=== PATIENT | male | born 1965 | race Caucasian/White ===

== ENCOUNTER 2018-11-10 04:20 | Emergency (ER) | payer BC ==
[2018-11-10 04:27] VITALS: TEMP 98.1
--- NOTE | 2018-11-10 04:38 | ED ---
General Adult HPI - General Chief complaint: Shortness of Breath Stated complaint: Difficulty Swallowing/Breathing Time Seen by Provider: 11/10/18 04:32 Source: patient Mode of arrival: ambulatory Limitations: no limitations - History of Present Illness Initial comments: This patient is a 53-year-old man who presents with complaint that he feels like his throat has some swelling. He states that this came on approximately an hour ago and he noted that when he woke up from sleep. Patient states that he had felt pre-much normal when he had gone to bed. Patient denies dyspnea area no fever or chills. Patient states that his symptoms feel a little bit better if he swallows cold water. He has not noted any worsening factors. -: hour(s) Radiation: non-radiation Quality: other (Tight) Consistency: constant Improves with: other (Cold water) Worsens with: none Associated Symptoms: denies other symptoms - Related Data Allergies Allergy/AdvReac Type Severity Reaction Status Date / Time No Known Allergies Allergy Verified 11/10/18 04:27 Review of Systems ROS Statement: Those systems with pertinent positive or pertinent negative responses have been documented in the HPI. ROS Other: All systems not noted in ROS Statement are negative. Constitutional: Denies: fever, chills ENT: Reports: as per HPI, throat pain. Denies: ear pain, dental pain, congestion Respiratory: Denies: cough, dyspnea, wheezes Cardiovascular: Denies: chest pain Gastrointestinal: Denies: abdominal pain, nausea, vomiting Skin: Denies: rash Neurological: Denies: headache Past Medical History Past Medical History: No Reported History History of Any Multi-Drug Resistant Organisms: None Reported Past Surgical History: Appendectomy, Cholecystectomy Past Psychological History: No Psychological Hx Reported Smoking Status: Never smoker Past Alcohol Use History: None Reported Past Drug Use History: None Reported General Exam Limitations: no limitations General appearance: alert, in no apparent distress Eye exam: Present: normal appearance. Absent: scleral icterus, conjunctival injection ENT exam: Present: mucous membranes moist, other (There is a trace of edema to the uvula, which is symmetric. No peritonsillar abscess.) Neck exam: Present: normal inspection, full ROM. Absent: tenderness, lymphadenopathy Respiratory exam: Present: normal lung sounds bilaterally. Absent: respiratory distress, wheezes, rales, rhonchi, stridor Cardiovascular Exam: Present: regular rate, normal rhythm, normal heart sounds. Absent: systolic murmur, diastolic murmur, rubs, gallop GI/Abdominal exam: Present: soft. Absent: distended, tenderness, guarding, rebound Course Vital Signs 11/10/18 11/10/18 04:23 06:11 Temperature 98.1 F Pulse Rate 79 72 Respiratory 18 20 Rate Blood Pressure 144/81 115/79 O2 Sat by Pulse 99 95 Oximetry EKG Findings - EKG Results: EKG: interpreted by ERMD, sinus rhythm (Rate 75 bpm), normal QRS, normal ST/T - Blocks, [place], Hypertrophy, ST Abn: QRS axis and voltage: left axis deviation (-30 to -90) Medical Decision Making - Medical Decision Making Patient's 53-year-old man with feeling of swelling in the pharynx that developed WAS sleeping. The patient on the exam does have mild edema of the uvula. His workup here is unremarkable, strep test negative, soft tissue neck interpreted by myself as negative. Radiologist raises question of possible sialoadenitis, but this does not appear to be the case clinically. Patient has had improvement through his course in the department, and states that he is feeling well and would like to go. Did discuss with him follow-up with your nose and throat doctor, as well as the return parameters. All questions answered. - Lab Data Result diagrams: 11/10/18 04:35 11/10/18 04:35 Lab Results 11/10/18 11/10/18 11/10/18 Range/Units 04:35 04:35 04:35 WBC 8.0 (3.8-10.6) k/uL RBC 4.91 (4.30-5.90) m/uL Hgb 15.8 (13.0-17.5) gm/dL Hct 47.9 (39.0-53.0) % MCV 97.5 (80.0-100.0) fL MCH 32.2 (25.0-35.0) pg MCHC 33.0 (31.0-37.0) g/dL RDW 13.3 (11.5-15.5) % Plt Count 287 (150-450) k/uL Neutrophils % 58 % Lymphocytes % 25 % Monocytes % 10 % Eosinophils % 4 % Basophils % 1 % Neutrophils # 4.6 (1.3-7.7) k/uL Lymphocytes # 2.0 (1.0-4.8) k/uL Monocytes # 0.8 (0-1.0) k/uL Eosinophils # 0.3 (0-0.7) k/uL Basophils # 0.1 (0-0.2) k/uL Sodium 141 (137-145) mmol/L Potassium 4.2 (3.5-5.1) mmol/L Chloride 108 H (98-107) mmol/L Carbon Dioxide 24 (22-30) mmol/L Anion Gap 9 mmol/L BUN 18 (9-20) mg/dL Creatinine 0.95 (0.66-1.25) mg/dL Est GFR (CKD-EPI)AfAm >90 (>60 ml/min/1.73 sqM) Est GFR (CKD-EPI)NonAf >90 (>60 ml/min/1.73 sqM) Glucose 150 H (74-99) mg/dL Calcium 9.6 (8.4-10.2) mg/dL Group A Strep Rapid Negative (Negative) Disposition Clinical Impression: Uvular edema Disposition: HOME SELF-CARE Condition: Good Instructions (If sedation given, give patient instructions): Uvulitis (ED) Is patient prescribed a controlled substance at d/c from ED?: No Referrals: Jude Perez Jr, DO [Primary Care Provider] - 1-2 days Darius Fowler MD [STAFF PHYSICIAN] - 1-2 days
[2018-11-10] MEDS ORDERED: predniSONE 20 MG TAB PO STA (04:48)
[2018-11-10] MEDS ORDERED: LIDOCAINE VISCOUS 2% 15 ML CUP MUCOUS MEM ONE (04:49)
[2018-11-10 04:58] LABS: Basophils # (A) 0.1 k/uL (0-0.2); Basophils % (A) 1 %; Eosinophils # (A) 0.3 k/uL (0-0.7); Eosinophils % (A) 4 %; HCT 47.9 % (39.0-53.0); HGB 15.8 gm/dL (13.0-17.5); Lymphocytes % (A) 25 %; MCH 32.2 pg (25.0-35.0); MCV 97.5 fL (80.0-100.0); Mean Platelet Volume 6.3; Monocytes # (A) 0.8 k/uL (0-1.0); Monocytes % (A) 10 %; Neutrophils # (A) 4.6 k/uL (1.3-7.7); Neutrophils % (A) 58 %; Platelet Count 287 k/uL (150-450); RBC 4.91 m/uL (4.30-5.90); RDW 13.3 % (11.5-15.5)
[2018-11-10 05:11] LABS: Anion Gap 9 mmol/L; Blood Urea Nitrogen 18 mg/dL (9-20); Calcium 9.6 mg/dL (8.4-10.2); Carbon Dioxide 24 mmol/L (22-30); Chloride 108 mmol/L (98-107); Glucose 150 mg/dL (74-99); Potassium 4.2 mmol/L (3.5-5.1); Sodium 141 mmol/L (137-145)
--- NOTE | 2018-11-10 05:34 | XR ---
EXAM: XR Soft Tissue Neck CLINICAL HISTORY: Pain TECHNIQUE: Frontal and lateral views of the soft tissues of the neck. COMPARISON: No relevant prior studies available. FINDINGS: Airway: Unremarkable. No abnormal narrowing. Bones/joints: Unremarkable. Soft tissues: Prominence of the submandibular soft tissues raises concern for submandibular sialadenitis. Normal epiglottis. IMPRESSION: Prominence of the submandibular soft tissues raises concern for submandibular sialadenitis. Correlate clinically.
[2018-11-10 06:13] VITALS: BP 115/79; PULSE 72; RESP 20
== END 2018-11-10 07:03 | disposition home or self-care (01) ==
LOC: EC 04:20
DX: R60.0 Localized edema (principal); J39.8 Other specified diseases of upper respiratory tract
CPT/HCPCS: 36415; 93005; 80048; 85025; 87081; 87430; 70360; 99285; J7512

== ENCOUNTER 2018-12-25 23:11 | Observation (INO) | payer BC ==
[2018-12-25] MEDS ORDERED: NITROGLYCERIN SL TABS 0.4 MG TAB SUBLINGUAL STA (23:26)
[2018-12-25] MEDS ORDERED: ASPIRIN 81 MG PO STA (23:26)
[2018-12-25 23:42] LABS: Basophils # (A) 0.1 k/uL (0-0.2); Basophils % (A) 1 %; Eosinophils # (A) 0.4 k/uL (0-0.7); Eosinophils % (A) 4 %; HCT 47.8 % (39.0-53.0); HGB 16.3 gm/dL (13.0-17.5); Lymphocytes % (A) 25 %; MCH 32.6 pg (25.0-35.0); MCHC 34.2 g/dL (31.0-37.0); MCV 95.4 fL (80.0-100.0); Mean Platelet Volume 6.7; Monocytes # (A) 0.8 k/uL (0-1.0); Monocytes % (A) 7 %; Neutrophils % (A) 61 %; Platelet Count 304 k/uL (150-450); RBC 5.01 m/uL (4.30-5.90); WBC 11.6 k/uL (3.8-10.6)
[2018-12-25] MEDS ORDERED: SODIUM CHLORIDE 0.9% 1,000 ML IV ONE (23:42)
[2018-12-25] MEDS ORDERED: ONDANSETRON 4 MG/2 ML VIAL IVP STA (23:45)
[2018-12-25 23:55] LABS: ALT 44 U/L (21-72); AST 28 U/L (17-59); Albumin 4.9 g/dL (3.5-5.0); Alkaline Phosphatase 95 U/L (38-126); Anion Gap 11 mmol/L; Blood Urea Nitrogen 19 mg/dL (9-20); Calcium 10.2 mg/dL (8.4-10.2); Carbon Dioxide 25 mmol/L (22-30); Chloride 106 mmol/L (98-107); Glucose 112 mg/dL (74-99); INR 0.9 (<1.2); Lipase 111 U/L (23-300); Partial Thromboplastin Time 23.9 sec (22.0-30.0); Potassium 4.5 mmol/L (3.5-5.1); Prothrombin Time 9.7 sec (9.0-12.0); Sodium 142 mmol/L (137-145); Total Bilirubin 0.5 mg/dL (0.2-1.3); Total Protein 8.4 g/dL (6.3-8.2)
--- NOTE | 2018-12-26 00:12 | XR ---
EXAM: XR Chest, 2 Views CLINICAL HISTORY: ITS.REASON XR Reason: Chest Pain TECHNIQUE: Frontal and lateral views of the chest. COMPARISON: No relevant prior studies available. FINDINGS: Lungs: No consolidation or mass. Pleural space: No effusion. Heart: No cardiomegaly. Mediastinum: Unremarkable. Bones/joints: No acute findings. IMPRESSION: No acute cardiopulmonary process.
--- NOTE | 2018-12-26 00:15 | ED ---
Chest Pain HPI - General Chief Complaint: Chest Pain Stated Complaint: Chest Pain Time Seen by Provider: 12/25/18 23:26 Source: patient Mode of arrival: wheelchair Limitations: no limitations - History of Present Illness Initial Comments: Leonard is an overweight if 53-year-old male who presents the emergency department today for valuation of sudden onset of sharp left-sided chest pain with associated dyspnea. Patient was in his usual state of health throughout the day today, he went to dinner with his family. He reports that approximately one hour prior to arrival he began having sharp pain in his left chest and feeling that he couldn't catch his breath. Patient's did give him 1 sublingual nitro any reports the pain decreased from a 10 out of 10 to a 2 out of 10 in severity prior to arrival in the emergency department. The patient has no history of hypertension, hyperlipidemia, or diabetes or known cardiovascular disease. He has been seen by cardiology in the past believes his last stress test was 3-4 years ago. - Related Data Home Medications Medication Instructions Recorded Confirmed No Known Home Medications 12/25/18 12/25/18 Allergies Allergy/AdvReac Type Severity Reaction Status Date / Time No Known Allergies Allergy Verified 11/10/18 04:27 Review of Systems ROS Statement: Those systems with pertinent positive or pertinent negative responses have been documented in the HPI. ROS Other: All systems not noted in ROS Statement are negative. EKG Findings - EKG Comments: EKG Findings:: Initial EKG was obtained at 2324, rate is 97 rhythm is sinus there is a normal axis there are normal intervals, MI 136, QRS 92, QTc 457 there is evidence of a left anterior fascicular block. There are no acute ST el evations or depressions there is no evidence of acute ischemia or infarction. After cyclical nitro patient was noted to become hypotensive and complaining of nausea and a repeat EKG was obtained at 2349, rate is 81 rhythm is sinus there is leftward axis deviation there are normal intervals, MI 134, QRS 90, QTc is 441 again there are no acute ST elevations or depressions there is no evidence of acute ischemia or infarction. Past Medical History Past Medical History: No Reported History History of Any Multi-Drug Resistant Organisms: None Reported Past Surgical History: Appendectomy, Cholecystectomy Past Psychological History: No Psychological Hx Reported Smoking Status: Never smoker Past Alcohol Use History: None Reported Past Drug Use History: None Reported General Exam - General Exam Comments Initial Comments: Physical Exam GENERAL: Patient is well-developed and well-nourished. Patient is nontoxic and well-hydrated and is in no distress. Appears mildly uncomfortable HENT: Normocephalic, Atraumatic. EYES: PERRL, EOMI PULMONARY: Unlabored respirations. No audible rales rhonchi or wheezing was noted. CARDIOVASCULAR: There is a regular rate and rhythm without any murmurs gallops or rubs. Radial pulses present and equal bilaterally ABDOMEN: Soft and nontender with normal bowel sounds. No pulsatile masses SKIN: Skin is clear with no lesions or rashes and otherwise unremarkable. : Deferred NEUROLOGIC: Patient is alert and oriented x3. Moving all extremities spontaneously MUSCULOSKELETAL: Normal extremities with adequate strength and full range of motion. No lower extremity swelling or edema. No calf tenderness. PSYCHIATRIC: Normal psychiatric evaluation. Limitations: no limitations Course Vital Signs 12/25/18 12/25/18 12/26/18 23:16 23:49 00:14 Temperature 98.0 F Pulse Rate 111 H 81 85 Respiratory 22 18 Rate Blood Pressure 141/88 117/76 126/85 O2 Sat by Pulse 95 93 L Oximetry 12/26/18 12/26/18 12/26/18 00:36 01:21 02:34 Temperature 98.5 F Pulse Rate 76 81 851 H Respiratory 16 16 18 Rate Blood Pressure 122/69 110/70 118/72 O2 Sat by Pulse 95 97 97 Oximetry Chest Pain MDM - MDM The patient was seen and evaluated immediately upon arrival to the emergency department is a 53-year-old overweight male with history of sleep apnea and poor outpatient follow-up who presents with left-sided stabbing chest pain with associated dyspnea Patient had a nitro prior to arrival with resolution of his pain he reports feeling much more comfortable now Cardiac workup was ordered as well as additional nitro. Second nitro was given the patient was noted to become hypotensive at which time a repeat EKG again confirms sinus rhythm with no acute ST elevations or depressions Labs resulted with no significant abnormalities however given the patient's age and risk factors I do feel he warrants admission to the hospital for further evaluation. Patient and family are comfortable with this plan. Patient was admitted to the hospital for cardiology workup. Disposition Clinical Impression: Chest pain Disposition: ADMITTED IP TO THIS HOSP Condition: Stable
[2018-12-26] MEDS ORDERED: NITROGLYCERIN SL TABS 0.4 MG TAB SUBLINGUAL PRN (00:21)
[2018-12-26 12:15] VITALS: BP 120/77; PULSE 70; RESP 18; TEMP 97.7
--- NOTE | 2018-12-26 12:41 | CONS ---
CONSULTATION CHIEF COMPLAINT: Chest pain. HISTORY OF PRESENT ILLNESS: Leonard is a 53-year-old gentleman with no significant past medical history who presented to hospital complaining of chest pain. He had an episode of chest discomfort. Took his 's sublingual nitroglycerin and the pain had subsided. There is no prior history of hypertension, diabetes, dyslipidemia. Apparently had a negative stress test 3-4 years ago. Since being admitted, he is doing well and is free of cardiac symptoms. His EKG does not reveal ischemic changes, shows sinus rhythm with left axis deviation. He had 2 sets of tropes that were both negative. Hemoglobin is normal at 16.3. PAST MEDICAL HISTORY: Negative for hypertension, diabetes, dyslipidemia. MEDICATIONS: None. ALLERGIES: Allergies none. FAMILY HISTORY: Negative for premature coronary artery disease. SOCIAL HISTORY: Negative for smoking, EtOH abuse or drug abuse. REVIEW OF SYSTEMS: HEENT is unremarkable. Cardiac as described above. Respiratory negative. GI negative. negative. ALLERGY/IMMUNOLOGY: Negative. Skin negative. Musculoskeletal significant for arthritis. Psychosocial negative. Endocrine: Negative. Derm negative. Constitutional negative. Oncological negative. Rest of the system review is not relevant. EXAM: The patient is comfortable at rest. Vital signs are stable. There is no jugular venous distention. Carotid upstroke is normal. There is no bruit. Chest exam reveals good air entry bilaterally. Heart exam reveals first and second heart sounds. No gallop. No murmur. Abdomen is soft. Exam of extremities did not reveal edema. Peripheral pulses are felt. ASSESSMENT: Precordial chest pain. PLAN: Patient's chest discomfort is sharp, atypical, nonpleuritic, and the patient has been doing well since admission. EKG does not reveal ischemic changes. Troponins are negative. I am going to obtain a stress test on him tomorrow. If this is negative, he can be discharged home and have outpatient follow up with me in 4 weeks time. If stress test is abnormal, I will consider further workup. Thank you for allowing me to participate in the care of this pleasant gentleman. MMODL / IJN: [id number] /
--- NOTE | 2018-12-26 12:46 | P.HPIM ---
History of Present Illness H&P Date: 12/26/18 Chief Complaint: Chest pain, shortness of breath Leonard is a 53-year-old male well-known to the practice who presented to the emergency room today complaining of sudden onset of left-sided chest pain associated with dyspnea. Patient was otherwise feeling well went to dinner with his family reported approximately one hour prior to arrival he began having sharp chest pain in the left and feeling like he couldn't catch his breath patient's gave him a sublingual nitro the pain diminished significantly from a 10 out of 10 due to out of 10. Prior to arrival in the emergency room. Patient had probable known history of obstructive sleep apnea and is primary care provider as we've been encouraging him to undergo ION testing, patient had stress thallium approximately 3 years ago that was completely normal. Father was in his 60s secondary to liver disease his paternal grandfather in his late 50s secondary to myocardial infarction. His mother is still alive no significant medical history. This patient's oldest daughter is a registered nurse who works in the emergency room at this facility. Review of Systems Constitutional: Reports as per HPI, Reports daytime sleepiness, Reports fatigue Ears, nose, mouth and throat: Reports as per HPI Cardiovascular: Reports chest pain, Reports high blood pressure, Reports shortness of breath Respiratory: Reports dyspnea (Snoring excessively, daughter describes hypopneac episodes when patient falls asleep on his favorite chair) Gastrointestinal: Reports dyspepsia Genitourinary: Reports as per HPI Musculoskeletal: Reports as per HPI Integumentary: Reports as per HPI Neurological: Reports as per HPI Psychiatric: Reports as per HPI Past Medical History Past Medical History: No Reported History Additional Past Medical History / Comment(s): Heavy snoring, daughter and have described hyper apnea Episodes when patient sleeps on his favorite chair, after dinner History of Any Multi-Drug Resistant Organisms: None Reported Past Surgical History: Appendectomy, Cholecystectomy Past Anesthesia/Blood Transfusion Reactions: No Reported Reaction Past Psychological History: No Psychological Hx Reported Smoking Status: Never smoker Past Alcohol Use History: None Reported Past Drug Use History: None Reported Medications and Allergies Home Medications Medication Instructions Recorded Confirmed Type No Known Home Medications 12/25/18 12/26/18 History Allergies Allergy/AdvReac Type Severity Reaction Status Date / Time No Known Allergies Allergy Verified 12/26/18 08:54 Physical Exam Osteopathic Statement: *. No significant issues noted on an osteopathic structural exam other than those noted in the History and Physical/Consult. Vitals: Vital Signs Temp Pulse Pulse Resp BP BP Pulse Ox 12/26/18 12:00 97.7 F 70 18 120/77 96 12/26/18 08:00 97.6 F 72 16 121/73 98 12/26/18 03:20 77 16 12/26/18 03:02 98.5 F 77 16 132/73 97 12/26/18 02:34 98.5 F 851 H 18 118/72 97 12/26/18 01:21 81 16 110/70 97 12/26/18 00:36 76 16 122/69 95 12/26/18 00:14 85 126/85 12/25/18 23:49 81 18 117/76 93 L 12/25/18 23:16 98.0 F 111 H 22 141/88 95 Intake and Output 12/25/18 12/26/18 12/26/18 22:59 06:59 14:59 Other: Voiding Method Toilet # Voids 1 Weight 108.862 kg General: [Patient awake, alert and oriented times 3. Patient in no acute distress.] HEENT: [PERRL. EOMI. No pharyngeal erythema or exudate.] Neck: [No adenopathy.] Cardiac: [Heart regular in rate and rhythm. No S3. No S4. No clicks, rubs. No murmur.] Lungs: [Clear to auscultation bilaterally.] Abdomen: [No mass. No organomegaly. Bowel sounds presnt and normoactive in all 4 quadrants.] Abdominal postop scarring from appendectomy and laparoscopic cholecystectomy Extremes: [No edema no cyanosis no claudication normal pulses] : [] Musculoskeletal: [No joint erythema, edema or tenderness.] Skin: [No rash.] Neurologic: [No lateralizing deficits. CN II - XII grossly intact.] Lymphatic: [No adenopathy.] Results CBC & Chem 7: 12/25/18 23:23 12/25/18 23:23 Labs: Abnormal Lab Results - Last 24 Hours (Table) 12/25/18 12/25/18 Range/Units 23:23 23:23 WBC 11.6 H (3.8-10.6) k/uL Glucose 112 H (74-99) mg/dL Total Protein 8.4 H (6.3-8.2) g/dL Thrombosis Risk Factor Assmnt - Choose All That Apply Any of the Below Risk Factors Present?: Yes Each Factor Represents 1 point: Age 41-60 years, Obesity (BMI >25) Other Risk Factors: No Other congenital or acquired thrombophilia - If yes, enter type in comment: No Thrombosis Risk Factor Assessment Total Risk Factor Score: 2 Thrombosis Risk Factor Assessment Level: Low Risk Assessment and Plan (1) Loud snoring Current Visit: Yes Status: Acute Code(s): R06.83 - SNORING SNOMED Code(s): 90126299 Plan: Chest pain with associated shortness of breath Diminished are resolved with sublingual nitro Heavy snoring per and daughter Normal troponins Patient had normal stress test approximately 3 years ago Basic metabolic panel as well as all other labs are basically normal Cardiac ALLERGY consult performed plan is to proceed with stress thallium Discharge home schedule stress thallium as an outpatient Time with Patient: Greater than 30
--- NOTE | 2018-12-26 12:55 | P.DS ---
Providers Date of admission: 12/26/18 00:21 Expected date of discharge: 12/26/18 Attending physician: Micha Pate Consults: 12/26/18 00:21 Consult Physician Urgent Consulting Provider: [facility] Consult Reason/Comments: chest pain Do you want consulting provider notified?: Yes, Notify in am Primary care physician: Micha Pate - Discharge Diagnosis(es) (1) Loud snoring Patient was admitted last evening as a cardiac observe secondary to chest pain shortness of breath, chest pain that was resolved with nitroglycerin Troponins were all negative at this time Patient walked this morning without chest pain or difficulty Case was discussed with Dr. Weir cardiology will discharge patient home schedule stress thallium as an outpatient and obstructive sleep apnea evaluation as an outpatient We'll plan on evaluating patient in the office Thursday or Thursday morning Current Visit: Yes Status: Acute Hospital Course: Evaluation in the emergency room and subsequent overnight admission and observation unit for cardiac enzymes Patient Condition at Discharge: Stable Plan - Discharge Summary New Discharge Prescriptions: No Action No Known Home Medications Discharge Medication List No Known Home Medications 12/25/18 [History] Follow up Appointment(s)/Referral(s): Jude Perez Jr, DO [Doctor of Osteopathic Medicine] - 1-2 days Discharge Disposition: HOME SELF-CARE
[2018-12-27] MEDS ORDERED: ASPIRIN 325 MG TAB PO SCH (09:00)
== END 2018-12-26 13:26 | disposition home or self-care (01) ==
LOC: EC 23:11 → 1SOBS 12-26 00:21
PROVIDERS: ADMIT Family Medicine; ATTEND Family Medicine
DX: R07.89 Other chest pain (principal); I44.4 Left anterior fascicular block; I95.9 Hypotension, unspecified; R11.0 Nausea; M19.90 Unspecified osteoarthritis, unspecified site; R53.83 Other fatigue; G47.30 Sleep apnea, unspecified; R06.83 Snoring; E66.9 Obesity, unspecified; Z68.32 Body mass index [BMI] 32.0-32.9, adult; Z90.49 Acquired absence of other specified parts of digestive tract; Z82.49 Family history of ischemic heart disease and other diseases of the circulatory system; Z83.79 Family history of other diseases of the digestive system
CPT/HCPCS: 96361 ×2; 96374; 99285; 36415; 93005; 83880; 80053; 83690; 83735; 84484 ×2; 85025; 85610; 85730; 71046; G0378; J2405

== ENCOUNTER → 2019-03-03 | Outpatient (CLI) | payer BC ==
--- NOTE | 2019-03-03 22:08 | CONS ---
CONSULTATION DATE OF SERVICE: 03/03/2019 53-year-old gentleman has been evaluated in the sleep center for possible obstructive sleep apnea-hypopnea syndrome. HISTORY OF PRESENT ILLNESS/SLEEP WAKE EVALUATION: SLEEP SCHEDULE: Patient usual sleep schedule from 10 p.m. to 5:30 a.m. on working days and from midnight until 7 or 8 a.m. on weekends. FALLING ASLEEP: Sometimes he has problem with falling asleep. Has TV set in bedroom. DURING SLEEP: Usually sleeps on the side position. According to his , he has extremely loud snoring and episodes of stopped breathing during the sleep. Patient wakes up from sleep with episodes of difficulties to breathe and closing of his throat and was evaluated at that time in the emergency room for those symptoms. He has episodes of dry mouth, heartburn. DURING THE DAY/SLEEP WAKE EVALUATION: In the morning he wakes up tired. Worries about his sleep, has episodes of irritability. [place] Sleepiness Scale is 5. Questionable positive history of hypnagogic hallucination. No episodes of sleep paralysis or cataplexy. MEDICATIONS: None. PAST MEDICAL HISTORY: Positive for episodes of chest pain. 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 PAST SURGICAL HISTORY: Appendectomy, cholecystectomy. SOCIAL HISTORY: Quit smoking about 40 years ago. Alcohol consumption occasional. FAMILY HISTORY: Hypertension, heart problems, arthritis, cancer, snoring, acid reflux, liver problems, diabetes, during the sleep. REVIEW OF SYSTEMS: Awakenings from sleep up to 3 times with 2 episodes of nocturia. PHYSICAL EXAM: gentleman without distress. BP 123/82, HR 84, RR 14, height 5 feet 10 inches, weight 236.2, body mass index 33.8. Temperature 99.0, oxygen saturation at room air 96%. Oropharynx: Extremely low position of soft palate. Mallampati 4. Wide neck 16-1/2 inches in circumference. Neck Supple, no JVD. Thyroid is not palpable. LUNGS Clear to percussion and to auscultation. Good air exchange. No wheezing or rhonchi. HEART S1, S2 regular. No murmurs, gallops, or rubs. ABDOMEN: Slightly obese. Soft and nontender. Bowel sounds are present. No organomegaly appreciated. EXTREMITIES No clubbing or cyanosis. TEMPLER HEAD Awake, alert, and oriented X3. Cranial nerves 2 to 7 intact. There is no fasciculation or atrophy. noted. No focal deficits observed. IMPRESSION: 1. Loud snoring, witnessed episodes of stopped breathing during the sleep, awakening from sleep with gasping and choking, extremely low position of soft palate, wide neck, obstructive sleep apnea-hypopnea syndrome. 2. Obesity, body mass index 33.8. 3. History of episodes of angina. Cardiac evaluation was negative. 4. Status post appendectomy. 5. Status post lap cholecystectomy. PLAN: 1. Home sleep apnea test for evaluation of patient breathing during the sleep. 2. CPAP/BiPAP titration if sleep study confirms obstructive sleep apnea-hypopnea syndrome. 3. Preferable position during sleep on the side. 4. No driving if patient feels any sleepiness. 5. I will see patient for follow up visit to explain results of testing and following plan. Thank you very much for referring this patient for consultation. Sincerely, Kel Granda MD, PhD, FAASM Diplomat of [place] [employer] [place] [employer] [facility] MMODL / REYNOLDN: [id number] /
== END ==
LOC: SLEEP 15:59
PROVIDERS: ATTEND Internal Medicine
DX: G47.33 Obstructive sleep apnea (adult) (pediatric) (principal); E66.9 Obesity, unspecified; Z90.49 Acquired absence of other specified parts of digestive tract; Z90.89 Acquired absence of other organs; Z68.33 Body mass index [BMI] 33.0-33.9, adult; Z99.89 Dependence on other enabling machines and devices; Z86.79 Personal history of other diseases of the circulatory system; Z87.891 Personal history of nicotine dependence
CPT/HCPCS: 99211

== ENCOUNTER → 2019-07-21 | Outpatient (CLI) | payer BC ==
--- NOTE | 2019-07-21 11:44 | SFUN ---
SLEEP CENTER FOLLOW UP NOTE DATE OF SERVICE: 07/21/2019 A 53-year-old gentleman who has been followed in the Sleep Center for treatment of obstructive sleep apnea-hypopnea syndrome. Recently, patient had home sleep apnea test which showed severe abnormalities of respiration with apnea-hypopnea index 68.9 with oxygen desaturation to 82%. Then patient had CPAP titration, his respiration normalized and subsequently he received his CPAP unit. Today is his first visit after he was started on treatment with CPAP. I discussed results of sleep studies with the patient. He is able to use CPAP equipment every night. Does not snore with the CPAP. Sleeps better. [place] Sleepiness Scale today is 5. I checked CPAP unit, range of the pressure 8-13, average pressure 10.4. Usage is 28/30 nights and 26/30 nights for more 4 hours. Average usage is 6.4 hours, leak only 4 L/minute which is great. Apnea-hypopnea index of only 0.7, which is perfect. MEDICATIONS: Ibuprofen for the pain if necessary. Sometimes patient feels dryness in the throat, humidifier is at level of 2. PHYSICAL EXAM: Patient in no distress BP 149/86, HR 90, RR 16, weight 243, temp 99.0, oxygen saturation at room air 97%. OROPHARYNX: Extremely low soft palate, Mallampati 4. ABDOMEN: Slightly obese. NECK: Supple, no JVD. Thyroid is not palpable. LUNGS: Clear to percussion and to auscultation. Good air exchange. No wheezing or rhonchi. HEART: S1, S2 regular. No murmurs, gallops, or rubs. EXTREMITIES: No clubbing or cyanosis. [employer]: Awake, alert, and oriented X3. Cranial nerves 2 to 7 intact. There is no fasciculation or atrophy. noted. No focal deficits observed. IMPRESSION: 1. Severe obstructive sleep, apnea-hypopnea syndrome, apnea-hypopnea index 68.9 and oxygen desaturation to 82% on full control with CPAP. Patient demonstrated great compliance with treatment benefitting from treatment into slight dryness in the throat while using CPAP, humidifier level at 2. 2. Obesity. 3. Some periodic limb movements during titration. No clinical symptoms of limb movements at night. 4. History of migraine, related to the present wound. 5. Status post appendectomy. 6. Status post cholecystectomy. 7. History of episodes of angina with negative cardiac evaluation. Not any recent episodes of angina. PLAN: 1. Patient will continue to use CPAP equipment every night. 2. I will adjust humidity to 4 and I will teach him how to adjust humidity. 3. Losing weight. 4. Sleep hygiene with regular time in bed for at least 7.5 hours. 5. No driving if feeling sleepiness. 6. Will maintain all necessary prescriptions for CPAP supplies. 7. Followup visit in 6 months. MMLIBRADOL / IJN: [id number] /
== END | disposition home or self-care (01) ==
LOC: SLEEP 10:31
PROVIDERS: ATTEND Internal Medicine
DX: G47.33 Obstructive sleep apnea (adult) (pediatric) (principal); E66.9 Obesity, unspecified; G47.61 Periodic limb movement disorder; Z90.49 Acquired absence of other specified parts of digestive tract; Z86.79 Personal history of other diseases of the circulatory system; Z86.69 Personal history of other diseases of the nervous system and sense organs; Z98.890 Other specified postprocedural states

== ENCOUNTER → 2020-07-13 | Outpatient (CLI) | payer BC ==
[2020-07-13 14:49] LABS: Chol/HDL Ratio 4.55; LDL Cholesterol,Calculated 117.2 mg/dL (0.0-131.0); VLDL Calculation 24.8 mg/dL (5.00-40.00)
== END | disposition home or self-care (01) ==
LOC: LABWHC1 08:51
PROVIDERS: ATTEND Internal Medicine Cardiovascular Disease
DX: E78.2 Mixed hyperlipidemia (principal)
CPT/HCPCS: 36415; 80061; 84450; 84460

== ENCOUNTER 2020-08-23 15:59 | Emergency (ER) | payer BC ==
[2020-08-23 16:06] VITALS: TEMP 98.2
[2020-08-23] MEDS ORDERED: SODIUM CHLORIDE 0.9% 1,000 ML IV STA (16:24)
[2020-08-23] MEDS ORDERED: ONDANSETRON 4 MG/2 ML VIAL IVP STA (16:24)
[2020-08-23] MEDS ORDERED: MORPHINE SULFATE 4 MG/ML SYRINGE IV STA (16:24)
--- NOTE | 2020-08-23 16:33 | ED ---
Abdominal Pain HPI - General Chief Complaint: Abdominal Pain Stated Complaint: Abd Pain, Vomiting Time Seen by Provider: 08/23/20 16:05 Source: patient Mode of arrival: ambulatory Limitations: no limitations - History of Present Illness Initial Comments: Patient is a 55-year-old male with past medical history of obstructive sleep apnea who presents emergency room with reported diffuse abdominal pain. Pain started approximately 3 hours ago while he was at work. He describes it as a sharp, shooting and cramping pain without any provocative factors. He does have associated nausea and had 4 episodes of vomiting. States is nonbilious and nonbloody. Bowel movements was earlier this morning. Denies black or melenic stools. No fevers or chills. Patient is status post cholecystectomy and appendectomy. No history of EGD/colonoscopy. He denies diarrhea or constipation. Denies any changes in his urination to include dysuria, hematuria or difficulty voiding. Denies chest pain or shortness of breath. No numbness, tingling or weakness in his lower extremities. No other alleviating, precipitating or modifying factors - Related Data Home Medications Medication Instructions Recorded Confirmed Acetaminophen Tab [Tylenol] 650 mg PO ONETIME PRN 08/23/20 08/23/20 Calcium Carbonate [Tums] 1,000 mg PO ONETIME PRN 08/23/20 08/23/20 Previous Rx's Medication Instructions Recorded Hydrocodone/Acetaminophen [Barnett 1 tab PO Q8HR PRN #9 tab 08/23/20 5-325] Ibuprofen [Motrin] 600 mg PO Q8HR PRN #15 tab 08/23/20 Tamsulosin HCl [Flomax] 0.4 mg PO DAILY #7 capsule 08/23/20 Allergies Allergy/AdvReac Type Severity Reaction Status Date / Time No Known Allergies Allergy Verified 08/23/20 18:10 Review of Systems ROS Statement: Those systems with pertinent positive or pertinent negative responses have been documented in the HPI. ROS Other: All systems not noted in ROS Statement are negative. Past Medical History Past Medical History: No Reported History Additional Past Medical History / Comment(s): Heavy snoring, daughter and have described hyper apnea Episodes when patient sleeps on his favorite chair, after dinner History of Any Multi-Drug Resistant Organisms: None Reported Past Surgical History: Appendectomy, Cholecystectomy Past Anesthesia/Blood Transfusion Reactions: No Reported Reaction Past Psychological History: No Psychological Hx Reported Smoking Status: Never smoker Past Alcohol Use History: Occasional Past Drug Use History: None Reported General Exam Limitations: no limitations Course Vital Signs 08/23/20 08/23/20 16:03 18:00 Temperature 98.2 F Pulse Rate 73 74 Respiratory 18 16 Rate Blood Pressure 157/93 153/84 O2 Sat by Pulse 97 100 Oximetry Medical Decision Making - Medical Decision Making Upon arrival patient is placed in room 18. A thorough history and physical exam was performed. Patient is in a significant amount of pain and therefore he is given 4 mg of morphine after IV is established. 4 mg of Zofran also given. Laboratory studies are conducted and the patient went for a CT of his abdomen and pelvis with contrast without waiting for lab results. Laboratory studies are reviewed and demonstrated a white count of 12.4. Glucose elevated at 297. Lactic acid 2.9. Urinalysis is positive for small blood. CT of the patient's abdomen and pelvis demonstrates a 4 mm obstructing stone at the left utero vesicular junction. There is left-sided hydronephrosis and hydroureter. A left adrenal mass which measures 3 cm. The patient is reevaluated and continues to have pain. He is given 1 mg of Dilaudid and reevaluated and states pain has not really improved at this time. He was given additionally 15 mg of Toradol. The diagnosis, differential and treatment options are discussed with the patient. At this time the patient feels comfortable for discharge home. Patient will be given prescriptions for Barnett, Motrin and Flomax. He is to follow up with his primary care doctor in 2-4 days. Follow up with the urologist. Strain all his urine. Return to the emergency room for any new or worsening symptoms per patient was in agreement with this plan he was discharged home in stable condition - Lab Data Result diagrams: 08/23/20 16:32 08/23/20 16:32 Lab Results 08/23/20 08/23/20 08/23/20 Range/Units 16:32 16:32 16:32 WBC 12.4 H (3.8-10.6) k/uL RBC 5.00 (4.30-5.90) m/uL Hgb 16.5 (13.0-17.5) gm/dL Hct 47.7 (39.0-53.0) % MCV 95.3 (80.0-100.0) fL MCH 32.9 (25.0-35.0) pg MCHC 34.6 (31.0-37.0) g/dL RDW 12.6 (11.5-15.5) % Plt Count 290 (150-450) k/uL MPV 7.3 Neutrophils % 82 % Lymphocytes % 12 % Monocytes % 4 % Eosinophils % 1 % Basophils % 0 % Neutrophils # 10.2 H (1.3-7.7) k/uL Lymphocytes # 1.5 (1.0-4.8) k/uL Monocytes # 0.5 (0-1.0) k/uL Eosinophils # 0.1 (0-0.7) k/uL Basophils # 0.1 (0-0.2) k/uL PT 9.6 (9.0-12.0) sec INR 0.9 (<1.2) APTT 22.4 (22.0-30.0) sec Sodium (137-145) mmol/L Potassium (3.5-5.1) mmol/L Chloride (98-107) mmol/L Carbon Dioxide (22-30) mmol/L Anion Gap mmol/L BUN (9-20) mg/dL Creatinine (0.66-1.25) mg/dL Est GFR (CKD-EPI)AfAm (>60 ml/min/1.73 sqM) Est GFR (CKD-EPI)NonAf (>60 ml/min/1.73 sqM) Glucose (74-99) mg/dL Lactic Ac Sepsis Rflx Plasma Lactic Acid Levi (0.7-2.0) mmol/L Calcium (8.4-10.2) mg/dL Total Bilirubin (0.2-1.3) mg/dL AST (17-59) U/L ALT (4-49) U/L Alkaline Phosphatase (38-126) U/L Troponin I (0.000-0.034) ng/mL Total Protein (6.3-8.2) g/dL Albumin (3.5-5.0) g/dL Lipase (23-300) U/L Urine Color Yellow Urine Appearance Clear (Clear) Urine pH 5.5 (5.0-8.0) Ur Specific [place] >1.050 H (1.001-1.035) Urine Protein Trace H (Negative) Urine Glucose (UA) 3+ H (Negative) Urine Ketones 1+ H (Negative) Urine Blood Small H (Negative) Urine Nitrite Negative (Negative) Urine Bilirubin Negative (Negative) Urine Urobilinogen <2.0 (<2.0) mg/dL Ur Leukocyte Esterase Negative (Negative) Urine RBC 4 (0-5) /hpf Urine WBC 1 (0-5) /hpf Urine Mucus Rare H (None) /hpf 08/23/20 08/23/20 08/23/20 Range/Units 16:32 16:32 16:32 WBC (3.8-10.6) k/uL RBC (4.30-5.90) m/uL Hgb (13.0-17.5) gm/dL Hct (39.0-53.0) % MCV (80.0-100.0) fL MCH (25.0-35.0) pg MCHC (31.0-37.0) g/dL RDW (11.5-15.5) % Plt Count (150-450) k/uL MPV Neutrophils % % Lymphocytes % % Monocytes % % Eosinophils % % Basophils % % Neutrophils # (1.3-7.7) k/uL Lymphocytes # (1.0-4.8) k/uL Monocytes # (0-1.0) k/uL Eosinophils # (0-0.7) k/uL Basophils # (0-0.2) k/uL PT (9.0-12.0) sec INR (<1.2) APTT (22.0-30.0) sec Sodium 138 (137-145) mmol/L Potassium 4.3 (3.5-5.1) mmol/L Chloride 102 (98-107) mmol/L Carbon Dioxide 25 (22-30) mmol/L Anion Gap 11 mmol/L BUN 20 (9-20) mg/dL Creatinine 1.31 H (0.66-1.25) mg/dL Est GFR (CKD-EPI)AfAm 70 (>60 ml/min/1.73 sqM) Est GFR (CKD-EPI)NonAf 60 (>60 ml/min/1.73 sqM) Glucose 297 H (74-99) mg/dL Lactic Ac Sepsis Rflx Plasma Lactic Acid Levi 2.9 H* (0.7-2.0) mmol/L Calcium 9.8 (8.4-10.2) mg/dL Total Bilirubin 0.7 (0.2-1.3) mg/dL AST 36 (17-59) U/L ALT 56 H (4-49) U/L Alkaline Phosphatase 105 (38-126) U/L Troponin I <0.012 (0.000-0.034) ng/mL Total Protein 8.4 H (6.3-8.2) g/dL Albumin 4.8 (3.5-5.0) g/dL Lipase 88 (23-300) U/L Urine Color Urine Appearance (Clear) Urine pH (5.0-8.0) Ur Specific [place] (1.001-1.035) Urine Protein (Negative) Urine Glucose (UA) (Negative) Urine Ketones (Negative) Urine Blood (Negative) Urine Nitrite (Negative) Urine Bilirubin (Negative) Urine Urobilinogen (<2.0) mg/dL Ur Leukocyte Esterase (Negative) Urine RBC (0-5) /hpf Urine WBC (0-5) /hpf Urine Mucus (None) /hpf 08/23/20 Range/Units 17:09 WBC (3.8-10.6) k/uL RBC (4.30-5.90) m/uL Hgb (13.0-17.5) gm/dL Hct (39.0-53.0) % MCV (80.0-100.0) fL MCH (25.0-35.0) pg MCHC (31.0-37.0) g/dL RDW (11.5-15.5) % Plt Count (150-450) k/uL MPV Neutrophils % % Lymphocytes % % Monocytes % % Eosinophils % % Basophils % % Neutrophils # (1.3-7.7) k/uL Lymphocytes # (1.0-4.8) k/uL Monocytes # (0-1.0) k/uL Eosinophils # (0-0.7) k/uL Basophils # (0-0.2) k/uL PT (9.0-12.0) sec INR (<1.2) APTT (22.0-30.0) sec Sodium (137-145) mmol/L Potassium (3.5-5.1) mmol/L Chloride (98-107) mmol/L Carbon Dioxide (22-30) mmol/L Anion Gap mmol/L BUN (9-20) mg/dL Creatinine (0.66-1.25) mg/dL Est GFR (CKD-EPI)AfAm (>60 ml/min/1.73 sqM) Est GFR (CKD-EPI)NonAf (>60 ml/min/1.73 sqM) Glucose (74-99) mg/dL Lactic Ac Sepsis Rflx Y Plasma Lactic Acid Levi (0.7-2.0) mmol/L Calcium (8.4-10.2) mg/dL Total Bilirubin (0.2-1.3) mg/dL AST (17-59) U/L ALT (4-49) U/L Alkaline Phosphatase (38-126) U/L Troponin I (0.000-0.034) ng/mL Total Protein (6.3-8.2) g/dL Albumin (3.5-5.0) g/dL Lipase (23-300) U/L Urine Color Urine Appearance (Clear) Urine pH (5.0-8.0) Ur Specific [place] (1.001-1.035) Urine Protein (Negative) Urine Glucose (UA) (Negative) Urine Ketones (Negative) Urine Blood (Negative) Urine Nitrite (Negative) Urine Bilirubin (Negative) Urine Urobilinogen (<2.0) mg/dL Ur Leukocyte Esterase (Negative) Urine RBC (0-5) /hpf Urine WBC (0-5) /hpf Urine Mucus (None) /hpf - EKG Data EKG Comments: EKG demonstrates a normal sinus rhythm with a ventricular rate of 74. ND interval 134. QRS 94. QTC of 459. No acute ST segment elevations or depressions concerning for ischemic changes Disposition Clinical Impression: Abdominal pain, Ureteral stone with hydronephrosis, Hyperglycemia, Adrenal mass 1 cm to 4 cm in diameter Disposition: HOME SELF-CARE Condition: Stable Instructions (If sedation given, give patient instructions): Ureteral Stones (ED) Additional Instructions: Alternate taking Motrin and Barnett every 4 hours. Take the Flomax daily. Follow up with the urologist. Strain all urine. Return to the emergency room and for any new or worsening symptoms. I also recommend you follow up with your primary care doctor in regards to your left 3 cm adrenal mass and the elevation in your glucose. I do recommend a hemoglobin A1c test Prescriptions: Tamsulosin HCl [Flomax] 0.4 mg PO DAILY #7 capsule Ibuprofen [Motrin] 600 mg PO Q8HR PRN #15 tab PRN Reason: Pain Hydrocodone/Acetaminophen [Barnett 5-325] 1 tab PO Q8HR PRN #9 tab PRN Reason: Pain Is patient prescribed a controlled substance at d/c from ED?: Yes When asked, does pt state using other controlled substances?: No If prescribed controlled substance>3 days was MAPS reviewed?: Prescribed <3 Days If opioid is for acute pain is fill amount 7 days or less?: Yes If Rx opioid, was Start Talking consent form obtained?: Yes Referrals: Micha Pate MD [Primary Care Provider] - 1-2 days Lucho Lorenzana MD [STAFF PHYSICIAN] - 1-2 days Time of Disposition: 18:55
[2020-08-23 16:46] LABS: Basophils # (A) 0.1 k/uL (0-0.2); Basophils % (A) 0 %; Eosinophils # (A) 0.1 k/uL (0-0.7); Eosinophils % (A) 1 %; HCT 47.7 % (39.0-53.0); HGB 16.5 gm/dL (13.0-17.5); Lymphocytes # (A) 1.5 k/uL (1.0-4.8); Lymphocytes % (A) 12 %; MCH 32.9 pg (25.0-35.0); MCHC 34.6 g/dL (31.0-37.0); MCV 95.3 fL (80.0-100.0); Mean Platelet Volume 7.3; Monocytes # (A) 0.5 k/uL (0-1.0); Monocytes % (A) 4 %; Neutrophils # (A) 10.2 k/uL (1.3-7.7); Neutrophils % (A) 82 %; Platelet Count 290 k/uL (150-450); RDW 12.6 % (11.5-15.5); WBC 12.4 k/uL (3.8-10.6)
[2020-08-23 16:54] LABS: Albumin 4.8 g/dL (3.5-5.0); Calcium 9.8 mg/dL (8.4-10.2); INR 0.9 (<1.2); Partial Thromboplastin Time 22.4 sec (22.0-30.0); Potassium 4.3 mmol/L (3.5-5.1); Prothrombin Time 9.6 sec (9.0-12.0); Total Bilirubin 0.7 mg/dL (0.2-1.3); Total Protein 8.4 g/dL (6.3-8.2)
--- NOTE | 2020-08-23 16:58 | XR ---
EXAMINATION TYPE: XR chest 2V DATE OF EXAM: 08/23/2020 COMPARISON: 12/26/2018 INDICATION: Abdomen pain nausea vomiting diaphoresis TECHNIQUE: Frontal and lateral views of the chest are obtained. FINDINGS: The heart size is normal. The pulmonary vasculature is normal. The lungs are clear. IMPRESSION: 1. No acute pulmonary process.
[2020-08-23] MEDS ORDERED: HYDROmorphone 1 MG/ML 1 ML SYRINGE IVP STA (17:04)
--- NOTE | 2020-08-23 17:12 | CT ---
EXAMINATION TYPE: CT abdomen pelvis w con DATE OF EXAM: 08/23/2020 COMPARISON: None HISTORY: Generalized abdominal pain with nausea and vomiting. CT DLP: 1785.6 mGycm Automated exposure control for dose reduction was used. CONTRAST: Performed with IV Contrast, patient injected with 100 mL of Isovue 300. Images were obtained from the diaphragm to the floor the pelvis with IV contrast. There is mild subsegmental atelectasis at the lung bases. There is fatty infiltration of the liver. H eart size is normal. There is no pericardial effusion. There is diffuse fatty infiltration of the liver. There are clips from cholecystectomy. Spleen stomac h pancreas appear normal. Bile ducts are not dilated. There is 3 cm low-density left adrenal mass. There is slight decreased enhancement of the left kidney compared to the right. There is left-sided h ydronephrosis and mild hydroureter. There is 4 mm obstructing calculus at the left ureterovesical nataliia ction. There is no inguinal hernia. Bladder distends smoothly. There is no free fluid in the pelvis. There is no inguinal hernia. There is no mesenteric edema. There is no ascites or free air. There is no bowel obstruction. The lum bar vertebra have normal alignment. Disc spaces are fairly normal. There is no compression fracture. Bony pelvis is intact. Hip joints are intact. IMPRESSION: Obstructing calculus at the left ureterovesical junction with left-sided hydronephrosis and hydrouret er. Fatty infiltration of the liver. There is left adrenal mass that has density of 30 which is indetermi skylar and is a change compared to the old CT scan of 12/06/2010. Clinical significance is not clear.
[2020-08-23] MEDS ORDERED: SODIUM CHLORIDE 0.9% 1,000 ML IV ONE (17:51)
[2020-08-23] MEDS ORDERED: KETOROLAC 15 MG/ML 1 ML VIAL IVP STA (17:54)
[2020-08-23 18:30] LABS: Appearance,Urine Clear (Clear); Bilirubin,Urine Negative (Negative); Blood,Urine Small (Negative); Color,Urine Yellow; Glucose,Urine (UA) 3+ (Negative); Ketones,Urine 1+ (Negative); Leukocyte Esterase,Urine Negative (Negative); Mucus,Urine Rare /hpf; Nitrite,Urine Negative (Negative); PH, Urine 5.5 (5.0-8.0); Protein,Urine Trace (Negative); RBC,Urine 4 /hpf (0-5); Urobilinogen,Urine <2.0 mg/dL (<2.0); WBC,Urine 1 /hpf (0-5)
[2020-08-23 18:31] LABS: Specific Gravity,Urine >1.050 (1.001-1.035)
[2020-08-23 18:55] VITALS: BP 153/84; PULSE 74; RESP 16
== END 2020-08-23 18:55 | disposition home or self-care (01) ==
LOC: EC 15:59
DX: N13.2 Hydronephrosis with renal and ureteral calculous obstruction (principal); R73.9 Hyperglycemia, unspecified; E27.8 Other specified disorders of adrenal gland; Z90.49 Acquired absence of other specified parts of digestive tract; Z90.89 Acquired absence of other organs
CPT/HCPCS: 36415; 93005; 80053; 83605; 83690; 84484; 85025; 85610; 85730; 81001; 71046; 74177; 99285; 96374; 96375 ×3; 96361 ×2; J2270; J2405; J1170; J1885; Q9967

== ENCOUNTER → 2020-09-14 | Outpatient (CLI) | payer BC ==
[2020-09-22 01:41] LABS: Metanephrine, Free 26 pg/mL (< OR = 57); Normetanephrine, Free 74 pg/mL (< OR = 148); Total, Free (MN + NMN) 100 pg/mL (< OR = 205)
== END | disposition home or self-care (01) ==
LOC: LABWHC1 12:12
PROVIDERS: ATTEND Urology
DX: D35.00 Benign neoplasm of unspecified adrenal gland (principal)
CPT/HCPCS: 36415; 82533; 83835

== ENCOUNTER → 2020-10-05 | Outpatient (CLI) | payer BC ==
[2020-10-05 08:36] LABS: African American GFR (CKD) >90 (>60 ml/min/1.73 sqM); Blood Urea Nitrogen 18 mg/dL (9-20); Non-African American GFR(CKD) 88 (>60 ml/min/1.73 sqM)
--- NOTE | 2020-10-05 10:46 | CT ---
EXAMINATION TYPE: CT abdomen wo/w con DATE OF EXAM: 10/05/2020 COMPARISON: CT abdomen and pelvis August 23, 2020 HISTORY: Adrenal mass, prior abnormal CT. CT DLP: 2050 mGycm, Automated Exposure Control for Dose Reduction was Utilized. CONTRAST: CT scan of the abdomen is performed with oral and without and with IV Contrast, patient injected with 100 ml mL of Isovue 300. Adrenal mass protocol. FINDINGS: LUNG BASES: There is a 6 mm stable posterior right basilar nodule axial image 11. In retrospect was p resent on recent CT. Not seen on [address] Follow-up advised. LIVER/GB: Visualized liver is hypodense on noncontrast images for spleen consistent diffuse fatty inf iltration. Cholecystectomy clips are redemonstrated. PANCREAS: No significant abnormality is seen. SPLEEN: No significant abnormality is seen. ADRENALS: New Left adrenal mass from [address] redemonstrated. It measures 3.1 x 2.9 cm on current stud y axial image 24 series 3. Hounsfield units average -1 on noncontrast images. There is enhancement of 19 Hounsfield units on 1 minute postcontrast images. There is washout to 13 Hounsfield units on 15 m inute delayed phase images. Finding of noncontrast CT images having Hounsfield units less than 10 is consistent with benign lipid rich adenoma though I would have expected more washout percentage. KIDNEYS: Symmetric cortical medullary uptake and excretion without hydronephrosis seen bilaterally. BOWEL: Oral contrast did not reach colonic level. No suspicious bowel dilatation. LYMPH NODES: No greater than 1cm abdominal lymph nodes are appreciated. OSSEOUS STRUCTURES: No significant abnormality is seen. OTHER: Mild calcified plaque of the aorta extends into branch vessels. Moderate-sized fat-containing umbilical hernia redemonstrated. IMPRESSION: 1. There is 3.1 cm left adrenal mass noted new from 2011 study, Hounsfield units average less than [address] consistent with benign lipid rich adenoma however degree of washout is not greater than 50% and lesion new from 2011, I still favor benign lipid rich adenoma but would consider follow -up CT or MRI in one-year time to reassess
== END | disposition home or self-care (01) ==
LOC: RADCTMAIN 07:38
PROVIDERS: ATTEND Urology
DX: D35.02 Benign neoplasm of left adrenal gland (principal)
CPT/HCPCS: 82565; 84520; 74170; 36415; Q9967

== ENCOUNTER → 2021-10-23 | Outpatient (CLI) | payer BC ==
[2021-10-23 08:42] LABS: African American GFR (CKD) >90 (>60 ml/min/1.73 sqM); Blood Urea Nitrogen 15 mg/dL (9-20); Non-African American GFR(CKD) >90 (>60 ml/min/1.73 sqM)
--- NOTE | 2021-10-23 10:33 | CT ---
EXAMINATION TYPE: CT adrenal glands wo/w con DATE OF EXAM: 10/23/2021 INDICATION: Adrenal adenoma, BPH, Diabetes CT DLP: 1645 mGy.cm Automated Exposure Control for Dose Reduction was Utilized. TECHNIQUE AND CONTRAST: Multiplanar CT scan of the abdomen is performed without and with IV Contrast, patient injected with 1 00 ml mL of Isovue 300. Delayed images were also obtained as per adrenal washout protocol. COMPARISON: CT dated 10/05/2020 FINDINGS: Redemonstration of the previously seen left adrenal lesion. It measures 3.3 x 3.3 cm, stable since CT abdomen yet was not appreciated in 2011 CT scan. The lesion demonstrates a density of less than 10 Hounsfield units in the noncontrast images with minimal enhancement in the venous phase reaching up to 24 Hounsfield units in density. The density in the delayed images is about 10 Hounsfield units. The stability is consistent with a benign lesion, possibly adenoma or a chronic collection (likely s equela of previous hemorrhage in the left adrenal). The postcontrast enhancement could be actually a pseudoenhancement. Unremarkable right adrenal. Previous cholecystectomy. No definite hepatic focal lesion. Cortical scarring is seen at the lower po le of the right kidney which could represent sequela of previous infection/infarct. 3 mm nonobstructi ng stone is seen at the lower pole of the right kidney. Unremarkable kidneys otherwise. Scattered art erial atherosclerotic calcifications. Unremarkable spleen and pancreas. Unremarkable nondistended sto mach, duodenum and visualized small and large bowel. No suspicious abdominal lymphadenopathy or sizab le ascites. 6.5 mm nodule is seen at the posterior aspect of the right lung base, appreciated since 2019 CT scan and appears less dense today. No aggressive bone lesion. IMPRESSION: Stable left adrenal lesion since 2019 CT scan yet was not appreciated in 2011 CT scan. The interval s tability is reassuring for a benign lesion, likely adrenal adenoma versus a chronic left adrenal oziel ection (likely sequela of previous hemorrhage in the left adrenal). The described post contrast enhan cement could be actually a pseudoenhancement. Another precautionary follow-up nonenhanced CT scan in 18 months can be considered. Incidental findings as described above.
== END | disposition home or self-care (01) ==
LOC: RADCTMAIN 07:37
PROVIDERS: ATTEND Urology
DX: E27.8 Other specified disorders of adrenal gland (principal); N40.0 Benign prostatic hyperplasia without lower urinary tract symptoms; E11.9 Type 2 diabetes mellitus without complications
CPT/HCPCS: 83835; 84153; 82533; 82565; 84520; 36415; 74170; Q9967

== ENCOUNTER → 2022-03-13 | Outpatient (CLI) | payer BC ==
--- NOTE | 2022-03-13 13:35 | P.PN ---
Subjective DATE: 03/13/2022 FOLLOW UP VISIT. Patient with obstructive sleep apnea hypopnea syndrome return to sleep center for follow-up visit. Information from previous visit have been reviewed. Patient did not use PAP equipment for several months. The patient does not have significant problems with the mask, PAP unit and humidification. Patient needs to get new supplies .[place] sleepiness scale is 5. I checked PAP unit. PAP unit pressure 8-13 cm H2O. Usage is about half of the nights for last year.. Leak is 10 l/m, which is in acceptable range. Apnea Hypopnea Index is 1.1, which is normal. MEDICATIONS:1. Metformin twice a day During physical exam: GENERAL: A pleasant patient without any distress. VITAL SIGNS: BP 134/82, HR 80, RR 16 , weight 231.4, height 5 foot 10-1/2 inches, body mass index 32.6, temperature 97.1, oxygen saturation at room air 96 % . HEENT: PERRLA, EOMI.low position of soft palate, Mallapati for . NECK: Supple. No JVD. LUNGS: Clear to percussion and to auscultation. Good air exchange. No wheezing or rhonchi. HEART: S1, S2 regular. ABDOMEN: Soft and nontender.[] EXTREMITIES: No clubbing or cyanosis. ELL TUTOR: Awake, alert, and oriented x3. No focal deficit. Impressions: 1. Obstructive sleep apnea-hypopnea syndrome. Normal respiration on CPAP. Patient needs to replace his mask to restart treatment. 2. Mild obesity body mass index 32.6. 3. History of periodic limb movements during the sleep test no clinical symptoms of the present time.. 4. History of migraine. 5. History of angina in the past with negative results of cardiac evaluation, no recent episodes. Plan: 1. Continue using PAP equipment every night for the whole night. 2. To change air filter at least 1-2 times per month. 3. PAP unit should stay lower then position of the head. 4. Advised patient to remove all remaining water from humidifier canister daily and make it dry after each usage. Refill canister with fresh distilled water before each usage. 5. Sleep hygiene with regular time in bed for at least 8 hours. 6. Precautions related to driving. No driving if feel any sleepiness. 7. I will maintain prescription for PAP supplies including mask, tube, filters. Prescription was written and is faxed to [facility]. 8. Follow up visit in 6 months or earlier if patient has any problems. 9. Watching weight. Thank you very much for allowing me to participate in the management of your patient. Kel Granda MD, PhD, FAASM. Diplomat of [place] [employer], Sleep Medicine Board by [employer] [facility] [place]
== END ==
LOC: SLEEP 13:05
PROVIDERS: ATTEND Internal Medicine
DX: G47.33 Obstructive sleep apnea (adult) (pediatric) (principal); Z99.89 Dependence on other enabling machines and devices; E66.9 Obesity, unspecified; Z68.32 Body mass index [BMI] 32.0-32.9, adult; G43.909 Migraine, unspecified, not intractable, without status migrainosus; Z86.79 Personal history of other diseases of the circulatory system
CPT/HCPCS: 99212

== ENCOUNTER → 2022-07-07 | Outpatient (CLI) | payer BC ==
[2022-07-07 14:31] LABS: ALT 29 U/L (10-49); AST 36 U/L (14-35); Chol/HDL Ratio 3.84 Ratio; LDL Cholesterol,Calculated 126.7 mg/dL (0.0-131.0); VLDL Calculation 19.82 mg/dL (5.00-40.00)
== END | disposition home or self-care (01) ==
LOC: LABWHC1 08:55
PROVIDERS: ATTEND Internal Medicine Cardiovascular Disease
DX: E78.2 Mixed hyperlipidemia (principal)
CPT/HCPCS: 36415; 80061; 84450; 84460

== ENCOUNTER → 2022-09-18 | Outpatient (CLI) | payer BC ==
--- NOTE | 2022-09-18 14:42 | P.PN ---
Subjective DATE: 09/18/2022 FOLLOW UP VISIT. Patient with obstructive sleep apnea hypopnea syndrome return to sleep center for follow-up visit. Information from previous visit have been reviewed. Patient is using PAP equipment every night for the whole night, getting PAP supplies in time. The patient does not have significant problems with the mask, PAP unit and humidification. [place] sleepiness scale is 8, which is normal. I checked information from PAP unit. PAP unit pressure 5-13, average 10.6 cm H2O. Usage is 90 % for more then 4 hours, average 5 hours per night. Leak is 5 l/m, which is in acceptable range. Apnea Hypopnea Index is 1.4, which is normal. MEDICATIONS:1. Metformin 500 mg twice a day 2. Lipitor 20 mg once a day During physical exam: GENERAL: A pleasant patient without any distress. VITAL SIGNS: BP 131/72, HR 67, RR 18, weight 236.4, temperature 98.5, oxygen saturation at room air 98 % . HEENT: PERRLA, EOMI.low position of soft palate, Mall[place]ati 4 . NECK: Supple. No JVD. LUNGS: Clear to percussion and to auscultation. Good air exchange. No wheezing or rhonchi. HEART: S1, S2 regular. ABDOMEN: Soft and nontender. Slightly obese EXTREMITIES: No clubbing or cyanosis. [employer]ER: Awake, alert, and oriented x3. No focal deficit. Impressions: 1. Obstructive sleep apnea-hypopnea syndrome. Patient demonstrated good compliance with treatment, benefiting from treatment. 2. History of periodic limb movements, clinically no complaints. 3. History of migraines. 4. History of chest pain episodes in the past, no recent episodes. 5. Hyperlipidemia. 6. Mild obesity the patient and his weight on 5 pounds comparing with previous visit Plan: 1. Continue using PAP equipment every night for the whole night. 2. To change air filter at least 1-2 times per month. 3. PAP unit should stay lower then position of the head. 4. Advised patient to remove all remaining water from humidifier canister daily and make it dry after each usage. Refill canister with fresh distilled water before each usage. 5. Sleep hygiene with regular time in bed for at least 8 hours. 6. Precautions related to driving. No driving if feel any sleepiness. 7. I will maintain prescription for PAP supplies including mask, tube, filters. 8. Follow up visit in 6 months or earlier if patient has any problems. 9. Watching and losing weight. Thank you very much for allowing me to participate in the management of your patient. Kel Granda MD, PhD, FAASM. Diplomat of [place] [employer], Sleep Medicine Board by [place] [employer] [facility] [place]
== END ==
LOC: SLEEP 13:53
PROVIDERS: ATTEND Internal Medicine
DX: G47.33 Obstructive sleep apnea (adult) (pediatric) (principal); G47.61 Periodic limb movement disorder; Z86.69 Personal history of other diseases of the nervous system and sense organs; E78.5 Hyperlipidemia, unspecified; Z86.79 Personal history of other diseases of the circulatory system; E66.9 Obesity, unspecified; Z99.89 Dependence on other enabling machines and devices
CPT/HCPCS: 99212